=== PATIENT | female | born 1940 | race Caucasian/White ===

== ENCOUNTER 2017-09-03 00:45 | Emergency (ER) | payer MEDICARE, BC ==
[2017-09-03 00:55] VITALS: BP 161/55
[2017-09-03] MEDS ORDERED: Oxymetazoline 0.05% Nasal Spray 15 ML Bottle NAS ONE (01:52)
[2017-09-03] MEDS ORDERED: Lidocaine 1% with EPINEPHrine 1:100,000 30 ML MDV INJECT ONE (01:53)
[2017-09-03] MEDS ORDERED: Nitrofurantoin Monohydrate/Macrocrystalline 100 MG Cap PO ONE (02:57)
--- NOTE | 2017-09-03 03:02 | EDM.PDOC ---
ED HPI GENERAL MEDICAL PROBLEM - General Chief Complaint: ENT Problem Stated Complaint: AMBULANCE-BLOODY NOSE Time Seen by Provider: 09/03/17 01:45 Source of Information: Reports: Patient, EMS, EMS Notes Reviewed, RN, RN Notes Reviewed History Limitations: Reports: No Limitations - History of Present Illness INITIAL COMMENTS - FREE TEXT/NARRATIVE: Pt presents to the ER per [facility] with c/o nose bleed. Pt states the nosebleed began about midnight, she states she had blood coming from the nares and out her mouth. She states she has also had some recent urgency, frequency, and burning, for which she has been taking OTC Cranberry pills. Nosebleed has stopped upon arrival to the ER after compression held by the patient. Onset: Today, Sudden - Related Data Allergies Allergy/AdvReac Type Severity Reaction Status Date / Time No Known Allergies Allergy Verified 09/03/17 01:01 Home Meds: Home Meds Olmesartan/Hydrochlorothiazide [Benicar HCT 40-12.5 MG] 1 each PO DAILY [History] amLODIPine Besylate [Norvasc] 5 mg PO DAILY 11/11/14 [History] Aspirin [Halfprin] 81 mg PO BRK 04/12/16 [History] Calcium Carb & Citrate/Vit D3 [Calcium + D3 ER Tablet] 2 tab PO DAILY 04/12/16 [ History] Levothyroxine Sodium [Synthroid] 75 mcg PO ACBREAKFAST 04/12/16 [History] Lutein/Minerals/Vit A,C & E [I-Rosalie] 1 tab PO BID 04/12/16 [History] atorvaSTATin [Lipitor] 10 mg PO DAILY 04/12/16 [History] Acetaminophen/oxyCODONE [Percocet 325-5 MG] 1 tab PO Q4H PRN #6 tablet 04/14/16 [Rx] Omeprazole 20 mg PO DAILY #15 tablet. 04/14/16 [Rx] predniSONE [Prednisone] 5 mg PO DAILY #3 tablet 04/14/16 [Rx] predniSONE [Prednisone] 10 mg PO DAILY #3 tablet 04/14/16 [Rx] predniSONE [Prednisone] 20 mg PO DAILY #3 tablet 04/14/16 [Rx] Past Medical History HEENT History: Reports: Cataract, Impaired Vision, Macular Degeneration Cardiovascular History: Reports: High Cholesterol, Hypertension, Pacemaker Gastrointestinal History: Reports: Irritable Bowel Syndrome Endocrine/Metabolic History: Reports: Hypothyroidism, Obesity/BMI 30+ - Infectious Disease History Infectious Disease History: Reports: Chicken Pox, Hepatitis A, Measles, Mumps, Rubella - Past Surgical History HEENT Surgical History: Reports: Cataract Surgery Female Surgical History: Reports: Hysterectomy Endocrine Surgical History: Reports: None Social & Family History - Family History Family Medical History: Noncontributory - Tobacco Use Smoking Status *Q: Never Smoker Second Hand Smoke Exposure: No - Caffeine Use Caffeine Use: Reports: Soda Caffeine Use Comment: coffee daily - Alcohol Use Days Per Week of Alcohol Use: 0 - Recreational Drug Use Recreational Drug Use: No ED ROS ENT - Review of Systems Review Of Systems: ROS reveals no pertinent complaints other than HPI. ED EXAM, ENT - Physical Exam Exam: See Below Exam Limited By: No Limitations General Appearance: Alert, WD/WN, No Apparent Distress Eye Exam: Bilateral Eye: EOMI, Normal Inspection, PERRL Ears: Normal External Exam, Hearing Grossly Normal Nose: Normal Inspection, Dried Blood Mouth/Throat: Normal Inspection, Normal Gums, Normal Lips, Normal Oropharynx, Normal Teeth Head: Atraumatic, Normocephalic Neck: Normal Inspection, Supple, Non-Tender, Full Range of Motion Respiratory/Chest: No Respiratory Distress, No Accessory Muscle Use, Chest Non- Tender, Decreased Breath Sounds Cardiovascular: Normal Peripheral Pulses, Regular Rate, Rhythm, No Edema, No Gallop, No JVD, No Murmur, No Rub GI/Abdominal: Normal Bowel Sounds, Soft, Non-Tender, No Distention (Female) Exam: Deferred Rectal (Female) Exam: Deferred Back: Normal Inspection, Full Range of Motion Extremities: Normal Inspection, Normal Range of Motion, Non-Tender, No Pedal Edema, Normal Capillary Refill Neurological: Alert, Oriented, CN II-XII Intact, Normal Cognition, Normal Gait, Normal Reflexes, No Motor/Sensory Deficits Psychiatric: Normal Affect, Normal Mood Skin: Warm, Dry, Intact, Normal Color, No Rash Lymphatic: No Adenopathy Course - Vital Signs Last Recorded V/S: Last Vital Signs Temp 96.6 F 09/03/17 00:48 Pulse 82 09/03/17 00:48 Resp 19 09/03/17 00:48 BP 161/55 H 09/03/17 00:48 Pulse Ox 96 09/03/17 00:48 - Orders/Labs/Meds Orders: Active Orders 24 hr Category Date Time Status CULTURE URINE [RM] Stat Lab 09/03/17 02:10 Received Labs: Laboratory Tests 09/03/17 Range/Units 02:10 Urine Color Dark yellow (YELLOW) Urine Appearance Cloudy (CLEAR) Urine pH 5.5 (5.0-9.0) Ur Specific Casa 1.010 (1.005-1.030) Urine Protein Negative (NEGATIVE) Urine Glucose (UA) Negative (NEGATIVE) Urine Ketones Negative (NEGATIVE) Urine Occult Blood Small H (NEGATIVE) Urine Nitrite Positive H (NEGATIVE) Urine Bilirubin Negative (NEGATIVE) Urine Urobilinogen 0.2 (0.2-1.0) mg/dL Ur Leukocyte Esterase Trace H (NEGATIVE) Urine RBC 0-5 /HPF Urine WBC 10-20 H (0-5/HPF) /HPF Ur Epithelial Cells Rare /HPF Amorphous Sediment Rare (0/HPF) /HPF Urine Bacteria Moderate H (0-FEW/HPF) /HPF Urine Mucus Rare /LPF Meds: Medications Discontinued Medications Generic Name Dose Route Start Last Admin Trade Name Freq PRN Reason Stop Dose Admin Lidocaine/Epinephrine 30 ml 09/03/17 01:53 09/03/17 03:05 Xylocaine 1% With Epinephrine 1:100,000 INJECT 09/03/17 01:54 Not Given ONETIME ONE Nitrofurantoin Macrocrystals 100 mg 09/03/17 02:57 09/03/17 03:04 Macrobid PO 09/03/17 02:58 100 mg ONETIME ONE Administration Oxymetazoline HCl 1 ml 09/03/17 01:52 09/03/17 03:04 Afrin Original 0.05% Nasal Dickey MAUREEN 09/03/17 01:53 Not Given ONETIME ONE Departure - Departure Time of Disposition: 02:59 Disposition: Home, Self-Care 01 Clinical Impression: Epistaxis UTI (urinary tract infection) Qualifiers: Urinary tract infection type: site unspecified Hematuria presence: with hematuria Qualified Code(s): N39.0 - Urinary tract infection, site not specified - Discharge Information Instructions: Urinary Tract Infection, Adult, [id number], Nosebleed, Easy-to- Read Referrals: Sean Lira MD [Primary Care Provider] - Forms: ED Department Discharge Additional Instructions: RX: Afrin with Lido/epi nasal spray, Macrobid Follow up with your primary care facility the end of this week Use vasoline in the nares to keep moist Continue to use steamer in the home Drink plenty of water - My Orders Last 24 Hours: My Active Orders 09/03/17 02:10 CULTURE URINE [RM] Stat - Assessment/Plan Last 24 Hours: My Active Orders 09/03/17 02:10 CULTURE URINE [RM] Stat
== END 2017-09-03 03:25 | disposition home or self-care (01) ==
LOC: DL.ED 00:45
DX: R04.0 Epistaxis (principal); N39.0 Urinary tract infection, site not specified; I10 Essential (primary) hypertension; E78.00 Pure hypercholesterolemia, unspecified; E03.9 Hypothyroidism, unspecified; Z79.52 Long term (current) use of systemic steroids; Z79.82 Long term (current) use of aspirin; Z79.899 Other long term (current) drug therapy
CPT/HCPCS: 81001; 87086; 99283; A9270; 87088; 87186

== ENCOUNTER 2021-11-30 11:53 | Emergency (ER) | payer MEDICARE, BC ==
[2021-11-30] MEDS ORDERED: Ondansetron 4 MG/2 ML SDV IVPUSH ONE (12:06)
[2021-11-30 12:11] VITALS: BP 122/64; PULSE 95
[2021-11-30 13:00] LABS: PTT,PARTIAL THROMBOPLSTIN TIME 29.4 SEC (22.0-34.0)
[2021-11-30 13:05] LABS: ANION GAP 14.9 mEq/L (7-13); CHLORIDE,CL 98 mmol/L (98-107); SODIUM,NA 133 mmol/L (136-145)
[2021-11-30 13:20] LABS: AMPHETAMINES,URINE NEGATIVE (NEGATIVE); BARBITURATES,URINE NEGATIVE (NEGATIVE); BENZODIAZEPINE,URINE NEGATIVE (NEGATIVE); MDMA (ECSTASY), URINE NEGATIVE (NEGATIVE); METHADONE,URINE NEGATIVE (NEGATIVE); METHAMPHETAMINES,URINE NEGATIVE (NEGATIVE); OPIATES,URINE NEGATIVE (NEGATIVE); OXYCODONE,URINE NEGATIVE (NEGATIVE); PHENCYCLIDINE,URINE NEGATIVE (NEGATIVE); TCA,URINE NEGATIVE (NEGATIVE)
[2021-11-30] MEDS ORDERED: Sodium Chloride 0.9% 1,000 ML IV ONE (13:36)
== END 2021-11-30 16:26 | disposition home or self-care (01) ==
LOC: DL.ED 11:53
DX: R55 Syncope and collapse (principal); T50.Z95A Adverse effect of other vaccines and biological substances, initial encounter; E03.9 Hypothyroidism, unspecified; E66.9 Obesity, unspecified; Z68.35 Body mass index [BMI] 35.0-35.9, adult; Z79.899 Other long term (current) drug therapy; Z79.84 Long term (current) use of oral hypoglycemic drugs; Z95.0 Presence of cardiac pacemaker
CPT/HCPCS: 36415; 80053; 80305; 80307; 81001; 83605; 83735; 83880; 84484; 85025; 85610; 85730; 86140; 93005; 93010; 96361; 96374; 99282; 99285; J2405; J7030

== ENCOUNTER 2024-02-04 10:28 | Inpatient (IN) | payer MEDICARE, BC ==
[2024-02-04] MEDS: Sodium Chloride 0.9% 1,000 ML IV ONE (11:00)
[2024-02-04] MEDS: Ondansetron 4 MG/2 ML SDV IVPUSH ONE (11:00)
[2024-02-04] MEDS: Famotidine 20 MG/2 ML SDV IVPUSH ONE (11:03)
[2024-02-04] MEDS: Iopamidol 612 MG/ML 100 ML Bottle IVPUSH ONE (11:14)
[2024-02-04 11:17] LABS: BASOPHILS PERCENT AUTO 0.2 % (0.0-1.0); EOSINOPHILS PERCENT AUTO 0.4 % (1.0-3.0); HEMATOCRIT 40.9 % (37.0-47.0); HEMOGLOBIN 13.2 g/dL (12.0-16.0); MEAN CORPUSCULAR HEMOGLOBIN 29.8 pg (27.0-34.0); MEAN CORPUSCULAR HGB CONC 32.3 g/dL (33.0-35.0); MEAN CORPUSCULAR VOLUME 92.3 fL (80-100); MONOCYTES PERCENT AUTO 6.6 % (2-8); NEUTROPHILS PERCENT AUTO 82.8 % (42.2-75.2); PLATELET COUNT,PLT 340 10^3/uL (150-450); RED BLOOD CELL COUNT 4.43 10^6/uL (4.2-5.4); WHITE BLOOD CELL COUNT,WBC 13.8 10^3/uL (5.0-10.0)
[2024-02-04 11:50] LABS: A/G RATIO 0.9; ALBUMIN 3.5 g/dL (3.4-5.0); ANION GAP 16.5 mEq/L (7-13); BILIRUBIN TOTAL 0.7 mg/dL (0.2-1.0); BUN/CREATININE RATIO 13.7 (No establ ref range); CALCIUM 8.9 mg/dL (8.5-10.1); CREATININE 3.07 mg/dL (0.55-1.02); EST CRCL DRUG DOSING (CG) 10.79 mL/min; MAGNESIUM 2.2 mg/dL (1.8-2.4); POTASSIUM,K 4.5 mmol/L (3.5-5.1); PROTEIN TOTAL,TP 7.5 g/dL (6.4-8.2); TSH ULTRASENSITIVE 2.2 uIU/mL (0.36-3.74)
[2024-02-04 11:52] LABS: LACTIC ACID 2.1 mmol/L (0.4-2.0)
[2024-02-04] MEDS: cefTRIAXone 1 GM Vial IVPUSH ONE (12:27)
[2024-02-04] MEDS: Sodium Chloride 0.9% 2,000 ML IV ONE (12:27)
[2024-02-04 12:36] LABS: APPEARANCE,URINE TURBID (CLEAR); BILIRUBIN,URINE NEGATIVE (NEGATIVE); COLOR,URINE YELLOW (YELLOW); GLUCOSE,URINE NEGATIVE (NEGATIVE); KETONES,URINE NEGATIVE (NEGATIVE); LEUKOCYTE ESTERASE,URINE NEGATIVE (NEGATIVE); NITRITE,URINE NEGATIVE (NEGATIVE); OCCULT BLOOD,URINE SMALL (NEGATIVE); PH,URINE 5.5 (5.0-9.0); PROTEIN,URINE NEGATIVE (NEGATIVE); UROBILINOGEN,URINE 0.2 mg/dL (0.2-1.0)
[2024-02-04 13:03] LABS: BACTERIA,URINE MODERATE /HPF (0-FEW/HPF); EPITHELIAL CELLS,URINE MODERATE /HPF (NOT SEEN); MUCUS,URINE FEW /LPF (NOT SEEN)
[2024-02-04] MEDS ORDERED: HYDROmorphone 0.5 MG/0.5 ML Syringe IVPUSH PRN (14:09)
[2024-02-04] MEDS ORDERED: Ondansetron 4 MG/2 ML SDV IVPUSH PRN (14:09)
[2024-02-04] MEDS ORDERED: Acetaminophen/HYDROcodone 325-5 MG Tab PO PRN (14:09)
[2024-02-04] MEDS ORDERED: Albuterol/Ipratropium 3.0-0.5 MG/3 ML Neb Soln NEB PRN (14:09)
[2024-02-04] MEDS ORDERED: Naloxone 2 MG/2 ML Syringe IVPUSH PRN (14:09)
[2024-02-04] MEDS ORDERED: Acetaminophen 325 MG Tab PO PRN (14:09)
[2024-02-04] MEDS ORDERED: Melatonin 3 MG Tab PO PRN (14:09)
[2024-02-04] MEDS ORDERED: Glucagon,Human Recombinant 1 MG Vial IM PRN (14:18)
[2024-02-04] MEDS ORDERED: 50% Dextrose in Water 50 ML Syringe IVPUSH PRN (14:18)
[2024-02-04] MEDS: Sodium Chloride 0.9% 1,000 ML IV SCH (17:12)
[2024-02-04] MEDS: Insulin Lispro 100 Units/ML 3 ML Vial SUBCUT SCH (17:17)
[2024-02-04] MEDS: Calcium Carbonate/Vitamin D3 1250 MG-5 MCG Tab PO SCH (20:00)
[2024-02-05] MEDS: Levothyroxine 100 MCG Tab PO SCH (05:00)
[2024-02-05 06:51] LABS: BASOPHILS PERCENT AUTO 0.4 % (0.0-1.0); EOSINOPHILS PERCENT AUTO 2.1 % (1.0-3.0); HEMATOCRIT 33.7 % (37.0-47.0); HEMOGLOBIN 10.7 g/dL (12.0-16.0); LYMPHOCYTES PERCENT AUTO 16.7 % (20.5-50.1); MEAN CORPUSCULAR HEMOGLOBIN 29.8 pg (27.0-34.0); MEAN CORPUSCULAR HGB CONC 31.8 g/dL (33.0-35.0); MEAN CORPUSCULAR VOLUME 93.9 fL (80-100); MONOCYTES PERCENT AUTO 7.9 % (2-8); NEUTROPHILS PERCENT AUTO 72.9 % (42.2-75.2); PLATELET COUNT,PLT 297 10^3/uL (150-450); RED BLOOD CELL COUNT 3.59 10^6/uL (4.2-5.4); WHITE BLOOD CELL COUNT,WBC 9.6 10^3/uL (5.0-10.0)
[2024-02-05 07:14] LABS: ALBUMIN 2.9 g/dL (3.4-5.0); ANION GAP 17.4 mEq/L (7-13); BILIRUBIN TOTAL 0.3 mg/dL (0.2-1.0); BUN/CREATININE RATIO 13.9 (No establ ref range); C-REACTIVE PROTEIN 1.73 ng/dL (<=0.50); CALCIUM 7.8 mg/dL (8.5-10.1); CREATININE 2.02 mg/dL (0.55-1.02); EST CRCL DRUG DOSING (CG) 16.4 mL/min; POTASSIUM,K 4.4 mmol/L (3.5-5.1); PROTEIN TOTAL,TP 6.4 g/dL (6.4-8.2)
[2024-02-05 07:15] LABS: A/G RATIO 0.83
[2024-02-05] MEDS ORDERED: Non-Formulary Medication 1 Each (Rivaroxaban [Xarelto] 20 MG Tablet) PO SCH (09:00)
[2024-02-05] MEDS: Tolterodine 2 MG Cap.ER PO SCH (09:05)
[2024-02-05] MEDS: Latanoprost 0.005% Ophth Soln 2.5 ML Bottle EYEBOTH SCH (09:06)
[2024-02-05] MEDS: Aspirin 81 MG Tab.EC PO SCH (09:06)
[2024-02-05] MEDS: amLODIPine 5 MG Tab PO SCH (09:06)
[2024-02-05] MEDS: cefTRIAXone 1 GM Vial IVPUSH SCH (09:07)
[2024-02-05] MEDS: Saccharomyces Boulardii (Probiotic) 250 MG Cap PO SCH (09:07)
[2024-02-05] MEDS: Rivaroxaban 10 MG Tab PO SCH (09:07)
[2024-02-05] MEDS: Lutein/Minerals/Vit A,C & E Tab PO SCH (09:07)
[2024-02-06 06:20] LABS: BASOPHILS PERCENT AUTO 0.3 % (0.0-1.0); EOSINOPHILS PERCENT AUTO 3.9 % (1.0-3.0); HEMATOCRIT 34.7 % (37.0-47.0); HEMOGLOBIN 10.9 g/dL (12.0-16.0); LYMPHOCYTES PERCENT AUTO 17.6 % (20.5-50.1); MEAN CORPUSCULAR HEMOGLOBIN 29.9 pg (27.0-34.0); MEAN CORPUSCULAR HGB CONC 31.4 g/dL (33.0-35.0); MEAN CORPUSCULAR VOLUME 95.1 fL (80-100); MONOCYTES PERCENT AUTO 7.8 % (2-8); NEUTROPHILS PERCENT AUTO 70.4 % (42.2-75.2); PLATELET COUNT,PLT 272 10^3/uL (150-450); RED BLOOD CELL COUNT 3.65 10^6/uL (4.2-5.4); WHITE BLOOD CELL COUNT,WBC 8.7 10^3/uL (5.0-10.0)
[2024-02-06 06:42] LABS: ALBUMIN 2.8 g/dL (3.4-5.0); ANION GAP 14.3 mEq/L (7-13); BILIRUBIN TOTAL 0.3 mg/dL (0.2-1.0); BUN/CREATININE RATIO 15.9 (No establ ref range); C-REACTIVE PROTEIN 2.36 ng/dL (<=0.50); CALCIUM 7.9 mg/dL (8.5-10.1); CREATININE 1.57 mg/dL (0.55-1.02); EST CRCL DRUG DOSING (CG) 21.1 mL/min; MAGNESIUM 1.8 mg/dL (1.8-2.4); POTASSIUM,K 4.3 mmol/L (3.5-5.1); PROTEIN TOTAL,TP 6.5 g/dL (6.4-8.2)
[2024-02-06 06:45] LABS: A/G RATIO 0.76
[2024-02-07] MEDS: Magnesium Sulfate/Water 50 ML IV ONE (11:25)
[2024-02-07 11:45] LABS: BASOPHILS PERCENT AUTO 0.4 % (0.0-1.0); EOSINOPHILS PERCENT AUTO 4.1 % (1.0-3.0); HEMATOCRIT 35.2 % (37.0-47.0); HEMOGLOBIN 11.2 g/dL (12.0-16.0); LYMPHOCYTES PERCENT AUTO 22.5 % (20.5-50.1); MEAN CORPUSCULAR HGB CONC 31.8 g/dL (33.0-35.0); MEAN CORPUSCULAR VOLUME 94.4 fL (80-100); MONOCYTES PERCENT AUTO 8.7 % (2-8); NEUTROPHILS PERCENT AUTO 64.3 % (42.2-75.2); PLATELET COUNT,PLT 284 10^3/uL (150-450); RED BLOOD CELL COUNT 3.73 10^6/uL (4.2-5.4); WHITE BLOOD CELL COUNT,WBC 9.1 10^3/uL (5.0-10.0)
[2024-02-07 11:46] LABS: A/G RATIO 0.72; ALBUMIN 2.8 g/dL (3.4-5.0); ANION GAP 15.6 mEq/L (7-13); BILIRUBIN TOTAL 0.4 mg/dL (0.2-1.0); BUN/CREATININE RATIO 14.9 (No establ ref range); C-REACTIVE PROTEIN 3.05 ng/dL (<=0.50); CREATININE 1.75 mg/dL (0.55-1.02); EST CRCL DRUG DOSING (CG) 18.93 mL/min; MAGNESIUM 1.7 mg/dL (1.8-2.4); POTASSIUM,K 4.6 mmol/L (3.5-5.1); PROTEIN TOTAL,TP 6.7 g/dL (6.4-8.2)
[2024-02-07 14:08] LABS: APPEARANCE,URINE CLEAR (CLEAR); BILIRUBIN,URINE NEGATIVE (NEGATIVE); COLOR,URINE YELLOW (YELLOW); GLUCOSE,URINE NEGATIVE (NEGATIVE); KETONES,URINE NEGATIVE (NEGATIVE); LEUKOCYTE ESTERASE,URINE NEGATIVE (NEGATIVE); NITRITE,URINE NEGATIVE (NEGATIVE); OCCULT BLOOD,URINE SMALL (NEGATIVE); PH,URINE 5.5 (5.0-9.0); PROTEIN,URINE TRACE (NEGATIVE); UROBILINOGEN,URINE 0.2 mg/dL (0.2-1.0)
[2024-02-07 14:22] LABS: BACTERIA,URINE FEW /HPF (0-FEW/HPF); EPITHELIAL CELLS,URINE MODERATE /HPF (NOT SEEN); MUCUS,URINE OCCASIONAL /LPF (NOT SEEN); WBC,URINE 0-5 /HPF (0-5/HPF)
[2024-02-07] MEDS: Magnesium Sulfate/Water 50 ML ONE (19:19)
[2024-02-08 05:46] LABS: BASOPHILS PERCENT AUTO 0.3 % (0.0-1.0); EOSINOPHILS PERCENT AUTO 2.8 % (1.0-3.0); HEMATOCRIT 33.5 % (37.0-47.0); HEMOGLOBIN 10.6 g/dL (12.0-16.0); LYMPHOCYTES PERCENT AUTO 12.7 % (20.5-50.1); MEAN CORPUSCULAR HEMOGLOBIN 29.7 pg (27.0-34.0); MEAN CORPUSCULAR HGB CONC 31.6 g/dL (33.0-35.0); MEAN CORPUSCULAR VOLUME 93.8 fL (80-100); MONOCYTES PERCENT AUTO 7.3 % (2-8); NEUTROPHILS PERCENT AUTO 76.9 % (42.2-75.2); PLATELET COUNT,PLT 284 10^3/uL (150-450); RED BLOOD CELL COUNT 3.57 10^6/uL (4.2-5.4); WHITE BLOOD CELL COUNT,WBC 11.2 10^3/uL (5.0-10.0)
[2024-02-08 06:07] LABS: ALBUMIN 2.6 g/dL (3.4-5.0); ANION GAP 14.6 mEq/L (7-13); BILIRUBIN TOTAL 0.3 mg/dL (0.2-1.0); BUN/CREATININE RATIO 18.4 (No establ ref range); C-REACTIVE PROTEIN 2.95 ng/dL (<=0.50); CALCIUM 8.7 mg/dL (8.5-10.1); CREATININE 1.52 mg/dL (0.55-1.02); EST CRCL DRUG DOSING (CG) 21.79 mL/min; MAGNESIUM 1.7 mg/dL (1.8-2.4); POTASSIUM,K 4.6 mmol/L (3.5-5.1); PROTEIN TOTAL,TP 6.3 g/dL (6.4-8.2)
[2024-02-08 06:08] LABS: A/G RATIO 0.7
[2024-02-08] MEDS: Magnesium Sulfate/Water 2 GM in Premix Bag 1 BAG IV ONE (10:27)
[2024-02-08] MEDS: Sodium Chloride 0.9% 10 ML Syringe FLUSH PRN (20:23)
[2024-02-09] MEDS: Magnesium Oxide 400 MG Tab PO SCH (05:10)
[2024-02-09] MEDS: Polyethylene Glycol 3350 Powder 17 GM Packet PO PRN (09:20)
[2024-02-09] MEDS: Glimepiride 2 MG Tab PO STA (18:00)
[2024-02-09] MEDS: metFORMIN 500 MG Tab PO SCH (20:02)
[2024-02-10 06:35] LABS: BASOPHILS PERCENT AUTO 0.2 % (0.0-1.0); EOSINOPHILS PERCENT AUTO 3.3 % (1.0-3.0); HEMATOCRIT 34.1 % (37.0-47.0); HEMOGLOBIN 11.1 g/dL (12.0-16.0); LYMPHOCYTES PERCENT AUTO 19.1 % (20.5-50.1); MEAN CORPUSCULAR HEMOGLOBIN 30.2 pg (27.0-34.0); MEAN CORPUSCULAR HGB CONC 32.6 g/dL (33.0-35.0); MEAN CORPUSCULAR VOLUME 92.7 fL (80-100); MONOCYTES PERCENT AUTO 8.8 % (2-8); NEUTROPHILS PERCENT AUTO 68.6 % (42.2-75.2); PLATELET COUNT,PLT 323 10^3/uL (150-450); RED BLOOD CELL COUNT 3.68 10^6/uL (4.2-5.4); WHITE BLOOD CELL COUNT,WBC 9.7 10^3/uL (5.0-10.0)
[2024-02-10 06:59] LABS: ALBUMIN 2.7 g/dL (3.4-5.0); ANION GAP 9.4 mEq/L (7-13); BILIRUBIN TOTAL 0.3 mg/dL (0.2-1.0); BUN/CREATININE RATIO 18.9 (No establ ref range); CALCIUM 10.2 mg/dL (8.5-10.1); CREATININE 1.48 mg/dL (0.55-1.02); EST CRCL DRUG DOSING (CG) 22.38 mL/min; MAGNESIUM 1.6 mg/dL (1.8-2.4); POTASSIUM,K 4.4 mmol/L (3.5-5.1); PROTEIN TOTAL,TP 6.7 g/dL (6.4-8.2)
[2024-02-10 07:03] LABS: A/G RATIO 0.68
[2024-02-10] MEDS: Losartan 50 MG Tab PO SCH (08:02)
[2024-02-10] MEDS: Hydrochlorothiazide 25 MG Tab PO SCH (08:03)
[2024-02-10] MEDS: Glimepiride 2 MG Tab PO SCH (08:12)
[2024-02-10] MEDS: Bisacodyl 10 MG Supp RECTAL PRN (08:13)
[2024-02-10] MEDS ORDERED: [UNRECOGNIZED DRUG - OTHER] PO SCH (09:00)
[2024-02-10] MEDS ORDERED: OLMESARTAN PO SCH (09:00)
[2024-02-10] MEDS ORDERED: HYDROCHLOROTHIAZIDE PO SCH (09:00)
[2024-02-10 11:41] VITALS: BP 145/68; PULSE 82
== END 2024-02-10 13:15 | disposition home or self-care (01) | DRG 394 ==
LOC: DL.ED 10:28 → DL.MS 12:43 → DL.ED 12:57
PROVIDERS: ADMIT Internal Medicine; ATTEND Internal Medicine
DX: A41.9 Sepsis, unspecified organism (principal); K52.1 Toxic gastroenteritis and colitis; N17.9 Acute kidney failure, unspecified; N39.0 Urinary tract infection, site not specified; D72.829 Elevated white blood cell count, unspecified; T38.3X5A Adverse effect of insulin and oral hypoglycemic [antidiabetic] drugs, initial encounter; I25.10 Atherosclerotic heart disease of native coronary artery without angina pectoris; Z66 Do not resuscitate; E03.9 Hypothyroidism, unspecified; E86.0 Dehydration; Z68.39 Body mass index [BMI] 39.0-39.9, adult; E11.22 Type 2 diabetes mellitus with diabetic chronic kidney disease; E11.65 Type 2 diabetes mellitus with hyperglycemia; N18.2 Chronic kidney disease, stage 2 (mild); E66.9 Obesity, unspecified; I12.9 Hypertensive chronic kidney disease with stage 1 through stage 4 chronic kidney disease, or unspecified chronic kidney disease; E83.42 Hypomagnesemia; E78.00 Pure hypercholesterolemia, unspecified; Z95.0 Presence of cardiac pacemaker; Z79.82 Long term (current) use of aspirin; Z79.84 Long term (current) use of oral hypoglycemic drugs; Z79.01 Long term (current) use of anticoagulants; Z90.49 Acquired absence of other specified parts of digestive tract; Z90.89 Acquired absence of other organs; Z98.49 Cataract extraction status, unspecified eye; Z90.710 Acquired absence of both cervix and uterus; Z79.899 Other long term (current) drug therapy
CPT/HCPCS: 36415; 71045; 74177; 80053; 81001; 82947; 83605; 83690; 83735; 84443; 84484; 85025; 86140; 87040; 93005; 93010; 96361; 96374; 96375; 97161-GP; 97165-GO; 97530-GO; 99223; 99232; 99238; 99285; 99285-25; A9270-GY; J0696; J1815-GY; J2405; J3475; J3490; J7030; Q9967

== ENCOUNTER 2024-02-12 18:15 | Inpatient (IN) | payer MEDICARE, BC ==
[2024-02-12] MEDS: 50% Dextrose in Water 50 ML Syringe ONE (18:20)
[2024-02-12 18:58] LABS: BASOPHILS PERCENT AUTO 0.2 % (0.0-1.0); EOSINOPHILS PERCENT AUTO 0.9 % (1.0-3.0); HEMATOCRIT 34.6 % (37.0-47.0); LYMPHOCYTES PERCENT AUTO 10.3 % (20.5-50.1); MEAN CORPUSCULAR HEMOGLOBIN 29.9 pg (27.0-34.0); MEAN CORPUSCULAR HGB CONC 31.8 g/dL (33.0-35.0); MONOCYTES PERCENT AUTO 7.5 % (2-8); NEUTROPHILS PERCENT AUTO 81.1 % (42.2-75.2); PLATELET COUNT,PLT 373 10^3/uL (150-450); RED BLOOD CELL COUNT 3.68 10^6/uL (4.2-5.4); WHITE BLOOD CELL COUNT,WBC 12.1 10^3/uL (5.0-10.0)
[2024-02-12 19:16] LABS: INR 1.3 (0.9-1.2); PROTHROMBIN TIME 12.8 SEC (9.0-12.0)
[2024-02-12 19:28] LABS: ALANINE AMINOTRANSFERASE,ALT 24 U/L (14-59); ALKALINE PHOSPHATASE 118 U/L (46-116); ANION GAP 14.6 mEq/L (7-13); ASPARTATE AMNIOTRANSFERASE,AST 14 U/L (15-37); BILIRUBIN TOTAL 0.4 mg/dL (0.2-1.0); BLOOD UREA NITROGEN,BUN 36 mg/dL (7-18); BUN/CREATININE RATIO 22.4 (No establ ref range); CALCIUM 9.7 mg/dL (8.5-10.1); CARBON DIOXIDE,CO2 26 mmol/L (21-32); CHLORIDE,CL 99 mmol/L (98-107); CREATININE 1.61 mg/dL (0.55-1.02); GLUCOSE RANDOM 144 mg/dL (70-99); MAGNESIUM 2.1 mg/dL (1.8-2.4); POTASSIUM,K 4.6 mmol/L (3.5-5.1); SODIUM,NA 135 mmol/L (136-145); TSH ULTRASENSITIVE 2.84 uIU/mL (0.36-3.74)
[2024-02-12 19:29] LABS: A/G RATIO 0.75; ESTIMATED GFR 31 mL/min (>=60); ETHANOL BLOOD MEDICAL < 3 mg/dL (0)
[2024-02-12] MEDS ORDERED: Magnesium Hydroxide 400 MG/5 ML Susp 30 ML Cup PO PRN (21:40)
[2024-02-12] MEDS ORDERED: Sodium Chloride 0.9% 10 ML Syringe FLUSH PRN (21:40)
[2024-02-12] MEDS ORDERED: Ondansetron 4 MG/2 ML SDV IVPUSH PRN (21:40)
[2024-02-12] MEDS ORDERED: Polyethylene Glycol 3350 Powder 17 GM Packet PO PRN (21:40)
[2024-02-12] MEDS ORDERED: HYDROmorphone 0.5 MG/0.5 ML Syringe IVPUSH PRN (21:40)
[2024-02-12] MEDS ORDERED: Promethazine 25 MG/ML SDV IM PRN (21:40)
[2024-02-12] MEDS ORDERED: Albuterol/Ipratropium 3.0-0.5 MG/3 ML Neb Soln NEB PRN (21:40)
[2024-02-12] MEDS ORDERED: Naloxone 2 MG/2 ML Syringe IVPUSH PRN (21:40)
[2024-02-12] MEDS ORDERED: Sennosides/Docusate Sodium 50-8.6 MG Tab PO PRN (21:40)
[2024-02-12] MEDS ORDERED: Acetaminophen 325 MG Tab PO PRN (21:40)
[2024-02-12] MEDS ORDERED: 50% Dextrose in Water 50 ML Syringe IVPUSH PRN (21:44)
[2024-02-12] MEDS ORDERED: Glucagon,Human Recombinant 1 MG Vial IM PRN (21:44)
[2024-02-12] MEDS ORDERED: Insulin Lispro 100 Units/ML 3 ML Vial SUBCUT SCH (21:45)
[2024-02-12] MEDS ORDERED: traMADol 50 MG Tab PO PRN (22:10)
[2024-02-12] MEDS: Dextrose 5%-0.9% NaCl 1,000 ML IV SCH (22:40)
[2024-02-13] MEDS: 50% Dextrose in Water 50 ML Syringe IVPUSH ONE (04:44)
[2024-02-13] MEDS: Insulin Lispro 100 Units/ML 3 ML Vial SUBCUT SCH (06:15)
[2024-02-13] MEDS: Levothyroxine 100 MCG Tab PO SCH (06:20)
[2024-02-13 06:32] LABS: BASOPHILS PERCENT AUTO 0.2 % (0.0-1.0); EOSINOPHILS PERCENT AUTO 3.2 % (1.0-3.0); HEMATOCRIT 31.5 % (37.0-47.0); LYMPHOCYTES PERCENT AUTO 15.4 % (20.5-50.1); MEAN CORPUSCULAR HEMOGLOBIN 29.9 pg (27.0-34.0); MEAN CORPUSCULAR HGB CONC 31.7 g/dL (33.0-35.0); MEAN CORPUSCULAR VOLUME 94.3 fL (80-100); MONOCYTES PERCENT AUTO 9.2 % (2-8); PLATELET COUNT,PLT 335 10^3/uL (150-450); RED BLOOD CELL COUNT 3.34 10^6/uL (4.2-5.4); WHITE BLOOD CELL COUNT,WBC 8.9 10^3/uL (5.0-10.0)
[2024-02-13 06:56] LABS: ALBUMIN 2.6 g/dL (3.4-5.0); BILIRUBIN TOTAL 0.3 mg/dL (0.2-1.0); BUN/CREATININE RATIO 18.6 (No establ ref range); CALCIUM 8.9 mg/dL (8.5-10.1); CREATININE 1.61 mg/dL (0.55-1.02); EST CRCL DRUG DOSING (CG) 22.46 mL/min; MAGNESIUM 1.8 mg/dL (1.8-2.4); PROTEIN TOTAL,TP 6.1 g/dL (6.4-8.2)
[2024-02-13 07:01] LABS: A/G RATIO 0.74
[2024-02-13] MEDS: atorvaSTATin 20 MG Tab PO SCH (08:50)
[2024-02-13] MEDS: Calcium Carbonate/Vitamin D3 1250 MG-5 MCG Tab PO SCH (08:51)
[2024-02-13] MEDS: Magnesium Oxide 400 MG Tab PO SCH (08:51)
[2024-02-13] MEDS: Aspirin 81 MG Tab.EC PO SCH (08:51)
[2024-02-13] MEDS: Rivaroxaban 10 MG Tab PO SCH (08:52)
[2024-02-13] MEDS: Multivitamins with Iron/Calcium/Folic Acid/Minerals Tab PO SCH (08:52)
[2024-02-13] MEDS: Latanoprost 0.005% Ophth Soln 2.5 ML Bottle EYEBOTH SCH (08:54)
[2024-02-13] MEDS ORDERED: Non-Formulary Medication 1 Each (Rivaroxaban [Xarelto] 20 MG Tablet) PO SCH (09:00)
[2024-02-13] MEDS: metFORMIN 500 MG Tab PO SCH (09:08)
[2024-02-13] MEDS: Sodium Chloride 0.9% 10 ML Syringe FLUSH SCH (10:00)
[2024-02-13] MEDS ORDERED: Insulin Lispro 100 Units/ML 3 ML Vial SUBCUT SCH (12:00)
[2024-02-13] MEDS: Tolterodine 2 MG Cap.ER PO SCH (21:09)
[2024-02-14] MEDS: Insulin Lispro 100 Units/ML 3 ML Vial SUBCUT SCH (12:15)
[2024-02-16 07:14] LABS: ALBUMIN 2.5 g/dL (3.4-5.0); ANION GAP 14.6 mEq/L (7-13); BILIRUBIN TOTAL 0.5 mg/dL (0.2-1.0); BUN/CREATININE RATIO 21.7 (No establ ref range); CALCIUM 9.1 mg/dL (8.5-10.1); CREATININE 1.52 mg/dL (0.55-1.02); EST CRCL DRUG DOSING (CG) 23.79 mL/min; POTASSIUM,K 4.6 mmol/L (3.5-5.1); PROTEIN TOTAL,TP 6.3 g/dL (6.4-8.2)
[2024-02-16 07:19] LABS: A/G RATIO 0.66
[2024-02-17] MEDS: Melatonin 3 MG Tab PO PRN (19:55)
[2024-02-18 08:07] VITALS: BP 117/54; PULSE 82
== END 2024-02-18 10:15 | disposition other institution (70) | DRG 638 ==
LOC: DL.ED 18:15 → DL.MS 20:38 → UNDOADMOB 20:38 → DL.ED 21:27 → OBSVTOIN 02-14 11:04
PROVIDERS: ADMIT Internal Medicine; ATTEND Internal Medicine
DX: E11.649 Type 2 diabetes mellitus with hypoglycemia without coma (principal); E87.1 Hypo-osmolality and hyponatremia; E16.2 Hypoglycemia, unspecified; I10 Essential (primary) hypertension; E78.00 Pure hypercholesterolemia, unspecified; E66.9 Obesity, unspecified; E83.52 Hypercalcemia; I12.9 Hypertensive chronic kidney disease with stage 1 through stage 4 chronic kidney disease, or unspecified chronic kidney disease; N18.2 Chronic kidney disease, stage 2 (mild); Z66 Do not resuscitate; E78.5 Hyperlipidemia, unspecified; I25.10 Atherosclerotic heart disease of native coronary artery without angina pectoris; E03.9 Hypothyroidism, unspecified; E11.22 Type 2 diabetes mellitus with diabetic chronic kidney disease; D72.829 Elevated white blood cell count, unspecified; E66.01 Morbid (severe) obesity due to excess calories; E88.09 Other disorders of plasma-protein metabolism, not elsewhere classified; R62.7 Adult failure to thrive; Z68.37 Body mass index [BMI] 37.0-37.9, adult; Z95.0 Presence of cardiac pacemaker; Z79.84 Long term (current) use of oral hypoglycemic drugs; Z79.82 Long term (current) use of aspirin; Z79.01 Long term (current) use of anticoagulants; Z98.49 Cataract extraction status, unspecified eye; Z90.49 Acquired absence of other specified parts of digestive tract; Z90.710 Acquired absence of both cervix and uterus; Z91.148 Patient's other noncompliance with medication regimen for other reason; Z79.890 Hormone replacement therapy; Z79.899 Other long term (current) drug therapy
CPT/HCPCS: 36415; 70450; 71045; 80053; 80307; 82947; 83735; 84443; 84484; 85025; 85610; 93005; 93010; 96361; 96374; 99285; A9270-GY; G0378; J1815-GY; J3490; J7042

== ENCOUNTER 2024-11-05 09:33 | Emergency (ER) | payer MEDICARE, BC ==
[2024-11-05] MEDS: Oxymetazoline 0.05% Nasal Spray 30 ML Bottle NAS ONE (13:42)
== END 2024-11-05 10:55 | disposition home or self-care (01) ==
LOC: DL.ED 09:33
DX: R04.0 Epistaxis (principal); E66.9 Obesity, unspecified; I10 Essential (primary) hypertension; E78.00 Pure hypercholesterolemia, unspecified; E03.9 Hypothyroidism, unspecified; Z79.899 Other long term (current) drug therapy; Z79.82 Long term (current) use of aspirin; Z79.890 Hormone replacement therapy; Z79.4 Long term (current) use of insulin; Z90.49 Acquired absence of other specified parts of digestive tract; Z90.710 Acquired absence of both cervix and uterus
CPT/HCPCS: 99282; 99283; A9270

== ENCOUNTER 2024-12-05 18:06 | Inpatient (IN) | payer MEDICARE, BC ==
[2024-12-05 18:06] LABS: HEMATOCRIT 23.8 % (37.0-47.0); MEAN CORPUSCULAR HEMOGLOBIN 27.4 pg (27.0-34.0); MEAN CORPUSCULAR HGB CONC 27.7 g/dL (33.0-35.0); MEAN CORPUSCULAR VOLUME 98.8 fL (80-100); PLATELET COUNT,PLT 628 10^3/uL (150-450); RED BLOOD CELL COUNT 2.41 10^6/uL (4.2-5.4); WHITE BLOOD CELL COUNT,WBC 15.3 10^3/uL (5.0-10.0)
[~2024-12-05 18:06] MED LIST: Sodium Chloride 0.9% 10 ML Syringe FLUSH PRN
[2024-12-05 18:12] LABS: BASOPHILS PERCENT AUTO 0.1 % (0.0-1.0); EOSINOPHILS PERCENT AUTO 2.7 % (1.0-3.0); HEMOGLOBIN 6.6 g/dL (12.0-16.0); LYMPHOCYTES PERCENT AUTO 21.1 % (20.5-50.1); MONOCYTES PERCENT AUTO 5.1 % (2-8)
[2024-12-05 18:26] LABS: ALANINE AMINOTRANSFERASE,ALT 10 U/L (14-59); ALBUMIN 2.8 g/dL (3.4-5.0); ALKALINE PHOSPHATASE 141 U/L (46-116); ANION GAP 15.3 mEq/L (7-13); ASPARTATE AMNIOTRANSFERASE,AST 14 U/L (15-37); BILIRUBIN TOTAL 0.5 mg/dL (0.2-1.0); BLOOD UREA NITROGEN,BUN 48 mg/dL (7-18); BUN/CREATININE RATIO 16.3 (No establ ref range); CALCIUM 8.2 mg/dL (8.5-10.1); CARBON DIOXIDE,CO2 23 mmol/L (21-32); CHLORIDE,CL 104 mmol/L (98-107); CREATININE 2.94 mg/dL (0.55-1.02); GLUCOSE RANDOM 233 mg/dL (70-99); MAGNESIUM 3.2 mg/dL (1.8-2.4); POTASSIUM,K 4.3 mmol/L (3.5-5.1); SODIUM,NA 138 mmol/L (136-145)
[2024-12-05 18:29] LABS: EOSINOPHILS PERCENT MAN 4 % (1-3); LYMPHOCYTES PERCENT MAN 20 % (20-50); MONOCYTES PERCENT MAN 3 % (2-8); SEG NEUTROPHILS PERCENT MAN 73 % (42-75)
[2024-12-05 18:32] LABS: A/G RATIO 0.88; C-REACTIVE PROTEIN < 0.50 ng/dL (<=0.50); ESTIMATED GFR 15 mL/min (>=60); LACTIC ACID 4.6 mmol/L (0.4-2.0)
[2024-12-05] MEDS ORDERED: PROTHROMBIN COMPLEX CONCENTRATE IV ONE (18:41)
[2024-12-05 18:59] LABS: PROTHROMBIN TIME 55.2 SEC (9.0-12.0)
[2024-12-05 19:26] LABS: FERRITIN 79 mg/mL (8-252); IRON,FE 37 ug/dL (50-170)
[2024-12-05] MEDS ORDERED: Albuterol/Ipratropium 3.0-0.5 MG/3 ML Neb Soln NEB PRN (22:48)
[2024-12-05] MEDS ORDERED: Acetaminophen 650 MG Supp RECTAL PRN (22:48)
[2024-12-05] MEDS ORDERED: Metoclopramide 10 MG/2 ML SDV IV PRN (22:48)
[2024-12-05] MEDS ORDERED: Naloxone 2 MG/2 ML Syringe IVPUSH PRN (22:48)
[2024-12-05] MEDS ORDERED: Acetaminophen 325 MG Tab PO PRN (22:48)
[2024-12-05] MEDS ORDERED: HYDROmorphone 0.5 MG/0.5 ML Syringe IVPUSH PRN (22:48)
[2024-12-05] MEDS ORDERED: traMADol 50 MG Tab PO PRN (22:55)
[2024-12-05] MEDS ORDERED: 50% Dextrose in Water 50 ML Syringe IVPUSH PRN (22:57)
[2024-12-05] MEDS ORDERED: Glucagon,Human Recombinant 1 MG Vial IM PRN (22:57)
[2024-12-05] MEDS ORDERED: Nystatin Topical Powder 60 GM Bottle TOP PRN (22:59)
[2024-12-05] MEDS ORDERED: LORazepam 2 MG/ML SDV IVPUSH PRN (23:07)
[2024-12-05] MEDS ORDERED: Flumazenil 0.1 MG/ML 5 ML MDV IVPUSH PRN (23:07)
[2024-12-05] MEDS: Ondansetron 4 MG/2 ML SDV IVPUSH ONE (23:31)
[2024-12-05] MEDS: Tranexamic Acid 1,000 MG/10 ML Vial IVPUSH ONE (23:31)
[2024-12-05] MEDS: Tranexamic Acid 1,000 MG/10 ML Vial ONE (23:31)
[2024-12-05] MEDS: Sodium Chloride 0.9% 1,000 ML IV ONE (23:32)
[2024-12-05] MEDS: Metoclopramide 10 MG/2 ML SDV IVPUSH ONE (23:32)
[2024-12-05] MEDS: Factor IX Complex Human 500 UNIT VIAL IV ONE (23:32)
[2024-12-05] MEDS ORDERED: Insulin Lispro 100 Units/ML 3 ML Vial SUBCUT PRN (23:33)
[2024-12-05] MEDS: Insulin Lispro 100 Units/ML 3 ML Vial SUBCUT SCH (23:34)
[2024-12-05] MEDS: Tranexamic Acid 1,000 MG in Sodium Chloride 0.9% 500 ML IV ONE (23:34)
[2024-12-05] MEDS: Midodrine 5 MG Tab PO ONE (23:35)
[2024-12-06] MEDS: diphenhydrAMINE 50 MG/ML SDV IV ONE (00:07)
[2024-12-06] MEDS: Dexamethasone 4 MG/ML SDV IVPUSH ONE (00:08)
[2024-12-06] MEDS: Acetaminophen 325 MG Tab PO ONE (00:08)
[2024-12-06] MEDS: Dextrose 5%-0.9% NaCl 1,000 ML IV SCH (00:30)
[2024-12-06 06:26] LABS: HEMATOCRIT 28.9 % (37.0-47.0); HEMOGLOBIN 8.6 g/dL (12.0-16.0); LYMPHOCYTES PERCENT AUTO 3.3 % (20.5-50.1); MEAN CORPUSCULAR HGB CONC 29.8 g/dL (33.0-35.0); MEAN CORPUSCULAR VOLUME 94.1 fL (80-100); MONOCYTES PERCENT AUTO 1.9 % (2-8); NEUTROPHILS PERCENT AUTO 94.8 % (42.2-75.2); PLATELET COUNT,PLT 421 10^3/uL (150-450); RED BLOOD CELL COUNT 3.07 10^6/uL (4.2-5.4); WHITE BLOOD CELL COUNT,WBC 22.1 10^3/uL (5.0-10.0)
[2024-12-06 06:49] LABS: A/G RATIO 0.82; ALBUMIN 2.7 g/dL (3.4-5.0); ANION GAP 15.3 mEq/L (7-13); BILIRUBIN TOTAL 1.1 mg/dL (0.2-1.0); BUN/CREATININE RATIO 17.7 (No establ ref range); CREATININE 3.05 mg/dL (0.55-1.02); EST CRCL DRUG DOSING (CG) 12.62 mL/min; MAGNESIUM 3.4 mg/dL (1.8-2.4); POTASSIUM,K 5.3 mmol/L (3.5-5.1)
[2024-12-06] MEDS ORDERED: Sodium Chloride 0.9% 500 ML IV SCH (09:45)
[2024-12-06] MEDS: Midodrine 5 MG Tab PO SCH (11:46)
[2024-12-06] MEDS: Sodium Polystyrene Sulfonate 15 GM/60 ML Susp 60 ML Bot PO ONE (11:46)
[2024-12-06] MEDS: Oxybutynin 5 MG Tab.ER PO ONE (12:02)
[2024-12-06] MEDS: Insulin Lispro 100 Units/ML 3 ML Vial SUBCUT SCH (13:22)
[2024-12-06 20:08] LABS: A/G RATIO 0.76; ALBUMIN 2.6 g/dL (3.4-5.0); ANION GAP 11.2 mEq/L (7-13); BILIRUBIN TOTAL 0.9 mg/dL (0.2-1.0); BUN/CREATININE RATIO 17.4 (No establ ref range); CALCIUM 8.1 mg/dL (8.5-10.1); CREATININE 3.1 mg/dL (0.55-1.02); EST CRCL DRUG DOSING (CG) 12.42 mL/min; MAGNESIUM 3.5 mg/dL (1.8-2.4); POTASSIUM,K 4.2 mmol/L (3.5-5.1)
[2024-12-06] MEDS ORDERED: Acetaminophen 500 MG Tab PO PRN (23:21)
[2024-12-06] MEDS: Non-Formulary Medication 1 Each (Tolterodine Tartrate [Detrol La] 4 MG Cap.Er.24h) PO SCH (23:48)
[2024-12-07 06:47] LABS: BASOPHILS PERCENT AUTO 0.1 % (0.0-1.0); HEMATOCRIT 25.3 % (37.0-47.0); LYMPHOCYTES PERCENT AUTO 6.3 % (20.5-50.1); MEAN CORPUSCULAR HEMOGLOBIN 29.6 pg (27.0-34.0); MEAN CORPUSCULAR HGB CONC 31.6 g/dL (33.0-35.0); MEAN CORPUSCULAR VOLUME 93.7 fL (80-100); NEUTROPHILS PERCENT AUTO 87.6 % (42.2-75.2); PLATELET COUNT,PLT 384 10^3/uL (150-450); WHITE BLOOD CELL COUNT,WBC 19.4 10^3/uL (5.0-10.0)
[2024-12-07 06:55] LABS: ALBUMIN 2.4 g/dL (3.4-5.0); ANION GAP 15.3 mEq/L (7-13); BILIRUBIN TOTAL 0.6 mg/dL (0.2-1.0); BUN/CREATININE RATIO 17.5 (No establ ref range); CALCIUM 7.7 mg/dL (8.5-10.1); CREATININE 2.68 mg/dL (0.55-1.02); EST CRCL DRUG DOSING (CG) 14.37 mL/min; MAGNESIUM 3.1 mg/dL (1.8-2.4); POTASSIUM,K 4.3 mmol/L (3.5-5.1); PROTEIN TOTAL,TP 5.5 g/dL (6.4-8.2)
[2024-12-07 06:59] LABS: A/G RATIO 0.77
[2024-12-07] MEDS ORDERED: Oxybutynin 5 MG Tab.ER PO SCH (09:00)
[2024-12-07] MEDS: Folic Acid 1 MG Tab PO SCH (09:35)
[2024-12-07] MEDS: Levothyroxine 100 MCG Tab PO SCH (09:35)
[2024-12-07] MEDS: Ferrous Sulfate 325 MG Tab PO SCH (12:43)
[2024-12-07] MEDS: Latanoprost 0.005% Ophth Soln 2.5 ML Bottle EYELF SCH (20:00)
[2024-12-08 06:18] LABS: BASOPHILS PERCENT AUTO 0.1 % (0.0-1.0); EOSINOPHILS PERCENT AUTO 0.3 % (1.0-3.0); HEMATOCRIT 27.5 % (37.0-47.0); HEMOGLOBIN 8.9 g/dL (12.0-16.0); LYMPHOCYTES PERCENT AUTO 11.3 % (20.5-50.1); MEAN CORPUSCULAR HEMOGLOBIN 30.6 pg (27.0-34.0); MEAN CORPUSCULAR HGB CONC 32.4 g/dL (33.0-35.0); MEAN CORPUSCULAR VOLUME 94.5 fL (80-100); MONOCYTES PERCENT AUTO 6.8 % (2-8); NEUTROPHILS PERCENT AUTO 81.5 % (42.2-75.2); PLATELET COUNT,PLT 385 10^3/uL (150-450); RED BLOOD CELL COUNT 2.91 10^6/uL (4.2-5.4); WHITE BLOOD CELL COUNT,WBC 14.6 10^3/uL (5.0-10.0)
[2024-12-08 06:41] LABS: A/G RATIO 0.7; ALBUMIN 2.3 g/dL (3.4-5.0); ANION GAP 11.8 mEq/L (7-13); BILIRUBIN TOTAL 0.6 mg/dL (0.2-1.0); BUN/CREATININE RATIO 18.3 (No establ ref range); CALCIUM 7.6 mg/dL (8.5-10.1); CREATININE 2.08 mg/dL (0.55-1.02); EST CRCL DRUG DOSING (CG) 18.51 mL/min; MAGNESIUM 2.9 mg/dL (1.8-2.4); POTASSIUM,K 3.8 mmol/L (3.5-5.1); PROTEIN TOTAL,TP 5.6 g/dL (6.4-8.2)
[2024-12-08] MEDS: hydrALAZINE 25 MG Tab PO SCH (08:58)
[2024-12-08] MEDS: Tolterodine 2 MG Tab PO SCH (09:04)
[2024-12-08] MEDS: Modafinil 100 MG Tab PO ONE (12:15)
[2024-12-08] MEDS: Mirtazapine 15 MG Tab PO SCH (21:23)
[2024-12-09] MEDS ORDERED: Lactulose Soln 10 GM/15 ML 30 ML UD Cup PO PRN (06:00)
[2024-12-09] MEDS: Modafinil 100 MG Tab PO SCH (08:22)
[2024-12-09] MEDS ORDERED: Modafinil 100 MG Tab PO SCH (09:00)
[2024-12-09] MEDS: Bisacodyl 10 MG Supp RECTAL ONE (21:41)
[2024-12-09] MEDS: Lactulose Soln 10 GM/15 ML 30 ML UD Cup PO ONE (21:41)
[2024-12-10 07:05] LABS: BASOPHILS PERCENT AUTO 0.1 % (0.0-1.0); EOSINOPHILS PERCENT AUTO 0.5 % (1.0-3.0); HEMATOCRIT 31.6 % (37.0-47.0); HEMOGLOBIN 10.2 g/dL (12.0-16.0); LYMPHOCYTES PERCENT AUTO 9.9 % (20.5-50.1); MEAN CORPUSCULAR HEMOGLOBIN 30.2 pg (27.0-34.0); MEAN CORPUSCULAR HGB CONC 32.3 g/dL (33.0-35.0); MEAN CORPUSCULAR VOLUME 93.5 fL (80-100); NEUTROPHILS PERCENT AUTO 81.5 % (42.2-75.2); PLATELET COUNT,PLT 401 10^3/uL (150-450); RED BLOOD CELL COUNT 3.38 10^6/uL (4.2-5.4); WHITE BLOOD CELL COUNT,WBC 15.2 10^3/uL (5.0-10.0)
[2024-12-10 07:10] LABS: ANION GAP 12.5 mEq/L (7-13); CALCIUM 8.4 mg/dL (8.5-10.1); CREATININE 1.91 mg/dL (0.55-1.02); EST CRCL DRUG DOSING (CG) 20.16 mL/min; MAGNESIUM 3.1 mg/dL (1.8-2.4); POTASSIUM,K 3.5 mmol/L (3.5-5.1)
[2024-12-10 07:15] VITALS: BP 138/55; PULSE 94
== END 2024-12-10 09:42 | disposition other institution (70) | DRG 82 ==
LOC: DL.ED 18:06 → DL.MS 22:05
PROVIDERS: ADMIT Internal Medicine; ATTEND Internal Medicine
PROC: 30233N1 Transfusion of Nonautologous Red Blood Cells into Peripheral Vein, Percutaneous Approach (ICD-10-PCS; principal; 2024-12-05)
DX: S06.6XAA Traumatic subarachnoid hemorrhage with loss of consciousness status unknown, initial encounter (principal); S06.5XAA Traumatic subdural hemorrhage with loss of consciousness status unknown, initial encounter; G93.41 Metabolic encephalopathy; E44.0 Moderate protein-calorie malnutrition; N17.9 Acute kidney failure, unspecified; I10 Essential (primary) hypertension; S02.101A Fracture of base of skull, right side, initial encounter for closed fracture; Z66 Do not resuscitate; E66.9 Obesity, unspecified; H54.7 Unspecified visual loss; Z98.0 Intestinal bypass and anastomosis status; E78.00 Pure hypercholesterolemia, unspecified; K58.9 Irritable bowel syndrome, unspecified; E03.9 Hypothyroidism, unspecified; E86.0 Dehydration; W18.30XA Fall on same level, unspecified, initial encounter; Y92.098 Other place in other non-institutional residence as the place of occurrence of the external cause; D50.9 Iron deficiency anemia, unspecified; I12.9 Hypertensive chronic kidney disease with stage 1 through stage 4 chronic kidney disease, or unspecified chronic kidney disease; N18.30 Chronic kidney disease, stage 3 unspecified; E11.65 Type 2 diabetes mellitus with hyperglycemia; E11.22 Type 2 diabetes mellitus with diabetic chronic kidney disease; E83.41 Hypermagnesemia; E66.812 Obesity, class 2; I49.5 Sick sinus syndrome; I48.91 Unspecified atrial fibrillation; Z79.82 Long term (current) use of aspirin; Z79.899 Other long term (current) drug therapy; Z79.84 Long term (current) use of oral hypoglycemic drugs; Z68.27 Body mass index [BMI] 27.0-27.9, adult; Z90.710 Acquired absence of both cervix and uterus; Z90.49 Acquired absence of other specified parts of digestive tract; Z98.49 Cataract extraction status, unspecified eye; Z98.890 Other specified postprocedural states; Z95.0 Presence of cardiac pacemaker; Z79.4 Long term (current) use of insulin; Z79.01 Long term (current) use of anticoagulants
CPT/HCPCS: 36415; 36430; 70450; 72125; 80053; 82272; 82728; 83540; 83550; 83605; 83735; 85025; 85610; 86140; 86850; 86900; 86901; 86920 ×2; 86922 ×2; 93005; 93010; 99285; P9016; 51702; 76770; 80048; 82947; 99223; 99233; 99238; A9270-GY; J1100; J1200; J1815-GY; J7042